=== PATIENT | male | born 1960 | race Caucasian/White ===

== ENCOUNTER 2021-11-30 12:00 | Emergency (ER) | payer OTHER ==
[2021-11-30 12:24] VITALS: TEMP 97.8; BMI 27.7
[2021-11-30 15:58] VITALS: BP 169/100; PULSE 61
== END 2021-11-30 16:18 | disposition home or self-care (01) ==
LOC: JER 12:00
DX: I10 Essential (primary) hypertension (principal); F10.920 Alcohol use, unspecified with intoxication, uncomplicated
CPT/HCPCS: 82962; 93005; 93010; 99283-25